=== PATIENT | female | born 1990 | race Caucasian/White ===

== ENCOUNTER 2017-06-29 11:41 | Inpatient (IN) | payer OTHER ==
[2017-06-29] VITALS (9 sets, daily range): BP systolic 118–126; BP diastolic 63–66; PULSE 100–102; RESP 17–18; TEMP 98.1–98.3
[~2017-06-29 11:41] MED LIST: IBUP800 PO; PRENTAB50 PO
--- NOTE | 2017-06-29 12:41 | MH ---
cc: Kathryn Bleu MD DATE OF ADMISSION: 06/29/2017 INDICATION FOR ADMISSION: A 36-week intrauterine with good dates and persistent oligohydramnios. Specific amniotic fluid index today 4.3. HISTORY OF PRESENT CONDITION: The patient is a very pleasant 26-year-old white female, 2, para 1-0-0-1. Last menstrual period was 10/20/2016 and EDC is 07/27/2017, currently, at 36 and 0/7 weeks by dates and ultrasound. She has had an unremarkable other than a mildly elevated Glucola and normal 3-hour glucose tolerance test. She has had no labor, gestational diabetes. She has been compliant with care and her total weight gain has been 26 pounds. We have had a concern about a possible low-lying placenta/praevia and on ultrasound this was ruled out, but it was found earlier this week that her KACIE at 35+ weeks was 7. She came back in today having rested, drank plenty of fluids and her KACIE is 4.3. Dopplers are normal. The infant is vertex and otherwise biophysical profile of a 8/8. The cervix is closed, but soft and anterior, and the is at a -2 station. Estimated weight is 7 pounds. The pelvis is proven to 8.5 pounds. PAST MEDICAL HISTORY: Her general health is excellent. She has no chronic or systemic illnesses. SOCIAL HISTORY: She does not smoke, drink or use illicit drugs. 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 FAMILY HISTORY: Noncontributory. LABS: Her blood type is O positive. Her hemoglobin was 10.9 at 28 weeks. Her Pap smears have been normal. She is immune to chickenpox and [place] measles. She has never been exposed to syphilis, hepatitis or HIV. Her thyroid studies are normal. Drug screen is normal and a quad screen showed no increased risk of defects. REVIEW OF SYSTEMS: Normal otherwise and bilateral carpal tunnel symptomatology. IMMUNIZATIONS: She has had the flu shot, but she has not gotten the repeat Tdap this at all. PHYSICAL EXAMINATION: GENERAL: Well-developed, well-nourished female. VITAL SIGNS: Blood pressure is 110/60. VITAL SIGNS: Her weight is 204. Urine showed trace protein and leukocytes. LUNGS: Clear. HEART: Regular. ABDOMEN: Fundus is at 38. She has no CVA tenderness. PELVIC EXAM: Perineum is estrogenized. Vault shows the cervix as described. EXTREMITIES: Show minimal edema. IMPRESSION: A 36-week intrauterine with persistent oligohydramnios for gestational age. PLAN: To proceed with Cervidil and Pitocin augmentation as indicated. Pain management as indicated. We have reviewed the risks of oligohydramnios persistent versus early delivery. She knows there is a risk that this child could have transient tachypnea or mild respiratory distress syndrome and could possibly end up in the intensive care unit. She is going home to pick pulling machine tender her things and then heading to labor and delivery, where she will undergo Cervidil cervical ripening under continuous monitoring. Kathryn Blue MD PPC/SB , 09:26 AM , 10:02 AM
[2017-06-29] MEDS ORDERED: NS 1000 ML IV PRN (13:30)
[2017-06-29] MEDS ORDERED: MINERAL OIL 10 ML VIAL TOPICAL PRN ×2 (13:30→16:00)
[2017-06-29] MEDS ORDERED: LACTATED RINGER'S 1000 ML BOLUS IV PRN (13:30)
[2017-06-29] MEDS ORDERED: OXYTOCIN 30 UNITS 500ML PREMIX IV ONE (13:30)
[2017-06-29] MEDS ORDERED: CITRIC ACID-SODIUM CITRATE LIQ 30 ML UDC PO SCH ×2 (13:30→16:00)
[2017-06-29] MEDS ORDERED: LIDOCAINE HCL 1% 50 ML VIAL INFIL PRN ×2 (13:30→16:00)
[2017-06-29] MEDS ORDERED: NS 500 ML BOLUS IV PRN (13:30)
[2017-06-29] MEDS ORDERED: LIDOCAINE HCL 1% 50 ML VIAL I-DERMAL PRN ×2 (13:30→16:00)
[2017-06-29] MEDS ORDERED: DINOPROSTONE 10 MG INSERT-LEAVE FOR 12 HOURS VAGINAL ONE (13:45)
[2017-06-29] MEDS: LACTATED RINGER'S 1000 ML IV SCH ×2 (14:00→22:00)
[2017-06-29 14:49] LABS: AUTOMATED NEUTROPHIL # 8.3 TH/MM3 (1.8-7.7); BASOPHIL % 0.3 % (0.0-2.0); EOSINOPHIL # 0.2 TH/MM3 (0-0.4); EOSINOPHIL % 1.5 % (0.0-4.0); HEMATOCRIT 27.8 % (35.0-46.0); HEMOGLOBIN 9.3 GM/DL (11.6-15.3); LYMPH % 12.5 % (9.0-44.0); LYMPHOCYTE # 1.3 TH/MM3 (1.0-4.8); MEAN CELL VOLUME 78.2 FL (80.0-100.0); MEAN CORPUSCULAR HEMOGLOBIN 26.1 PG (27.0-34.0); MEAN CORPUSCULAR HGB CONC 33.4 % (32.0-36.0); MEAN PLATELET VOLUME 7.4 FL (7.0-11.0); MONO % 8.7 % (0.0-8.0); MONOCYTE # 0.9 TH/MM3 (0-0.9); PLATELET COUNT 286 TH/MM3 (150-450); RED BLOOD COUNT 3.56 MIL/MM3 (4.00-5.30); RED CELL DISTRIBUTION WIDTH 14.7 % (11.6-17.2); WHITE BLOOD COUNT 10.8 TH/MM3 (4.0-11.0)
[2017-06-29 15:22] LABS: AMORPHOUS SEDIMENT, URINE RARE; BILIRUBIN, URINE NEG (NEG); BLOOD, URINE NEG (NEG); GLUCOSE,URINE 300 mg/dL (NEG); KETONE, URINE NEG (NEG); MUCUS URINE FEW /lpf (OCC); NITRITE,URINE NEG (NEG); PH, URINE 6.5 (5.0-8.5); SQUAMOUS EPITHELIAL CELL URINE 4 /hpf (0-5); URINE COLOR YELLOW (YELLW/STRAW); URINE LEUKOCYTE ESTERASE MOD (NEG)
[2017-06-29] MEDS ORDERED: LACTATED RINGER'S 1000 ML INJ 1,000 ML IV PRN (15:56)
[2017-06-29] MEDS: LACTATED RINGER'S 1000 ML INJ 1,000 ML IV SCH ×2 (15:56→23:56)
[2017-06-29] MEDS ORDERED: SODIUM CHLORIDE 0.9% FLUSH 10 ML FLUSH IV FLUSH PRN (16:00)
[2017-06-29] MEDS ORDERED: OXYTOCIN 30 UNITS-500ML PREMIX 500 ML IV ONE (16:00)
[2017-06-29] MEDS ORDERED: DINOPROSTONE 10 MG VAG INSERT VAGINAL ONE (16:00)
[2017-06-29] MEDS ORDERED: SODIUM CHLORID 0.9% 500 ML INJ 500 ML IV PRN (16:00)
[2017-06-29] MEDS ORDERED: SODIUM CHLOR 0.9% 1000 ML INJ 1,000 ML IV PRN (16:16)
[2017-06-29] MEDS ORDERED: SODIUM CHLORIDE 0.9% FLUSH 10 ML FLUSH IV FLUSH SCH (21:00)
[2017-06-29] MEDS ORDERED: ZOLPIDEM TARTRATE 10 MG TAB PO PRN (21:00)
[2017-06-30] VITALS (49 sets, daily range): BP systolic 104–143; BP diastolic 54–98; PULSE 98–118; RESP 16–20; TEMP 97.9–98.5
[2017-06-30] MEDS ORDERED: BETAMETHASONE SOD PHOS/ACETATE SUSP 30 MG/5 ML VIAL IM ONE (08:15)
[2017-06-30] MEDS ORDERED: OXYTOCIN 30 UNITS/NS 500ML PREMIX IV PRN (08:15)
[2017-06-30] MEDS ORDERED: MISOPROSTOL 100 MCG TAB PO ONE (12:00)
[2017-06-30] MEDS ORDERED: SODIUM CHLORIDE 0.9% FLUSH 10 ML FLUSH IV FLUSH PRN (12:00)
[2017-06-30] MEDS ORDERED: MORPHINE SULFATE PF 5 MG/10 ML VIAL ONE (12:44)
[2017-06-30] MEDS ORDERED: ACETAMINOPHEN 1000 MG/100 ML 0 ML IV ONE (12:44)
--- NOTE | 2017-06-30 16:30 | PD.LABORPN ---
Subjective Subjective comfortable with minimal contractions, no SUGGS, N, V Good movement with no leaking, bleeding Objective Vital Signs Vital Signs Date Time Temp Pulse Resp B/P (MAP) Pulse Ox O2 Delivery O2 Flow Rate FiO2 06/30/17 15:00 118 06/30/17 14:55 104 06/30/17 14:50 104 06/30/17 14:45 104 06/30/17 14:40 104 06/30/17 14:35 107 06/30/17 14:30 109 06/30/17 14:25 106 06/30/17 14:20 109 06/30/17 14:15 111 06/30/17 14:10 108 06/30/17 14:05 110 06/30/17 14:00 111 06/30/17 13:50 109 06/30/17 13:45 111 06/30/17 13:01 109 129/98 (108) 06/30/17 12:30 98 126/85 (99) 06/30/17 12:00 18 06/30/17 12:00 109 117/72 (87) 06/30/17 11:59 97.9 06/30/17 11:30 103 131/79 (96) 06/30/17 11:23 102 134/67 (89) 06/30/17 11:00 116 125/72 (89) 06/30/17 10:30 112 134/63 (86) 06/30/17 10:00 113 130/67 (88) 06/30/17 09:45 113 129/72 (91) Objective Pelvic Exam: anterior, thin,, ft, firm category 1 strip efw 7 pounds pelvis clinically adequate bedside sono shows no visible pocket of vluid that does not contain cord. Placenta grade 3 with calcifications and well demarkcated cotyledons. Weeks Gestation: 36 Gest Age Assessed Date: Jun 30, 2017 Gest Age Assessed Time: 16:26 Pt started active labor?: No Medical induction of labor?: Yes Medical induction start date: Jun 30, 2017 Medical induction start time: 08:00 Artificial rupture of membrane: No Assessment/Plan Assessment and Plan 36 week IUP with prgressive decrease ub KACIE over this week. For induction. Strip entirely reasusring no shcane with cervicil laslt night or with pitocin in the morning Will try cytotec orally and then resume pitocin again in night or am. No need to be so aggressive as to pecipitiate need for section, but do need continuos monitroing. anticipte use of oral cytotec and pitocin to evantually create labor and delivery. received [email or web address] Antonio MD Jun 30, 2017 16:30
[2017-06-30] MEDS ORDERED: MISOPROSTOL 25 MCG TAB PO ONE (17:00)
[2017-06-30] MEDS: SODIUM CHLORIDE 0.9% FLUSH 10 ML FLUSH IV FLUSH SCH (21:00)
[2017-06-30] MEDS ORDERED: MISOPROSTOL 100 MCG TAB PO SCH (22:00)
[2017-06-30] MEDS ORDERED: ONDANSETRON HCL 4 MG/2 ML VIAL ONE (23:06)
[2017-06-30] MEDS ORDERED: ONDANSETRON HCL 4 MG/2 ML VIAL IV PUSH SCH (23:15)
[2017-06-30] MEDS ORDERED: ONDANSETRON HCL 4 MG/2 ML VIAL IV PUSH PRN (23:15)
[2017-06-30] MEDS: LACTATED RINGER'S 1000 ML INJ 1,000 ML IV SCH (23:56)
[2017-07-01] VITALS (44 sets, daily range): BP systolic 74–144; BP diastolic 41–90; PULSE 86–160; RESP 16–18; TEMP 98–98.5; O2SAT 98
[2017-07-01] MEDS: LACTATED RINGER'S 1000 ML INJ 1,000 ML IV SCH (00:28)
[2017-07-01] MEDS: MISOPROSTOL 25 MCG TAB PO SCH ×3 (02:00→10:00)
[2017-07-01] MEDS: SODIUM CHLORIDE 0.9% FLUSH 10 ML FLUSH IV FLUSH SCH (09:00)
[2017-07-01] MEDS ORDERED: fentaNYL 2MCG-BUPIV 0.125% INJ 100 ML ONE (10:45)
[2017-07-01] MEDS ORDERED: ePHEDrine/NS 25 MG/5 ML SYRINGE ONE (10:45)
[2017-07-01] MEDS ORDERED: ePHEDrine/NS 25 MG/5 ML SYRINGE IV PUSH PRN (11:45)
[2017-07-01] MEDS ORDERED: DO NOT ADMINISTER ANTICOAGULANTS PRN (11:45)
[2017-07-01] MEDS ORDERED: NO SYSTEM NARCOTICS PRN (11:45)
[2017-07-01] MEDS ORDERED: fentaNYL 2MCG-BUPIV 0.125% 100 ML EPIDURAL SCH (11:45)
[2017-07-01] MEDS ORDERED: OXYTOCIN 30 UNITS/NS 500ML PREMIX IV PRN (13:15)
[2017-07-01] MEDS ORDERED: BUPIVACAINE/EPINEPHRINE 0.25% PF 10 ML VIAL ONE (14:29)
[2017-07-01] MEDS ORDERED: DIPHTH/TETANUS/ACEL PERTUSSIS (BOOSTER) 0.5 ML VIAL/PFS IM ONE (16:00)
[2017-07-01] MEDS ORDERED: MEASLES, MUMPS, RUBELLA VACCINE 0.5 ML VIAL SQ ONE (16:00)
--- NOTE | 2017-07-01 16:14 | PD.OB.DELI ---
Weeks gestation: 36 Gest age assessed date: Jun 30, 2017 Gest age assessed time: 16:26 Pt started active labor?: No Medical induction of labor?: Yes Medical induction start date: Jun 30, 2017 Medical induction start time: 08:00 Artificial rupture of membrane: Yes Artificial ROM date: Jul 01, 2017 Artifical ROM time: 08:30 Anesthesia: Epidural Vaginal Delivery: Normal Presentation: Occiput anterior Nuchal Cord: x1 Delayed cord clamping (45 sec): Yes : Female Delivery date: Jul 01, 2017 Delivery time: 16:13 One Minute : 9 Five Minute : 9 Weight: 7 Placenta: Spontaneous delivery Laceration: No lacerations Estimated blood loss: 200 Kathryn Blue MD Jul 01, 2017 16:14
[2017-07-01] MEDS ORDERED: ACETAMINOPHEN 325 MG TAB PO PRN (16:15)
[2017-07-01] MEDS ORDERED: ZOLPIDEM TARTRATE 5 MG TAB PO PRN (16:15)
[2017-07-01] MEDS ORDERED: OXYTOCIN 30 UNITS-500ML PREMIX 500 ML IV SCH (16:15)
[2017-07-01] MEDS ORDERED: WITCH HAZEL 50%/GLYCERIN 12.5% 40 PAD JAR TOPICAL PRN (16:15)
[2017-07-01] MEDS ORDERED: DOCUSATE SODIUM 50 MG/SENNA 8.6 MG TAB PO PRN (16:15)
[2017-07-01] MEDS ORDERED: BENZOCAINE 20% TOPICAL SPRAY 60 ML CAN TOPICAL PRN (16:15)
[2017-07-01] MEDS ORDERED: ALUMINUM/MAGNESIUM/SIMETH 30 ML CUP PO PRN (16:15)
[2017-07-01] MEDS ORDERED: SODIUM CHLORIDE 0.9% FLUSH 10 ML FLUSH IV FLUSH PRN (16:15)
[2017-07-01] MEDS ORDERED: ONDANSETRON ODT 4 MG TAB PO PRN (16:15)
--- NOTE | 2017-07-01 16:17 | HHI.DCPOC ---
Discharge Care Plan Report Symptoms to Your Doctor -Temperature above 100.5 degrees -Redness, of incision or excessive or foul smelling drainage -Unusual pain or calf pain -Increased vaginal bleeding -Painful or difficulty urinating -Feelings of extreme sadness or anxiety after 2 weeks Goals to Promote Your Health * To prevent worsening of your condition and complications * To maintain your health at the optimal level Directions to Meet Your Goals Take your medications as prescribed Follow your dietary instruction Follow activity as directed Ensure plenty of rest for recovery Drink fluids for hydration Keep your appointments as scheduled Take your immunizations and boosters as scheduled If your symptoms worsen call your PCP, if no PCP go to Urgent Care Center or Emergency Room Smoking is Dangerous to Your Health. Avoid second hand smoke Call the 24-hour crisis hotline for domestic abuse at Kathryn Blue MD Jul 01, 2017 16:17
[2017-07-02] MEDS: IBUPROFEN 800 MG TAB PO PRN ×2 (00:51→14:22)
[2017-07-02 07:35] VITALS: BP 105/72; PULSE 72; RESP 16; TEMP 98; O2SAT 98
--- NOTE | 2017-07-02 08:00 | HHI.OB ---
Subjective Post Day: 1 Remarks doing well, baby in NICU for TTN, low BS Objective Vitals/I&O Vital Signs Date Time Temp Pulse Resp B/P (MAP) Pulse Ox O2 Delivery O2 Flow Rate FiO2 07/02/17 07:35 98.0 72 16 105/72 (83) 98 07/01/17 20:00 98.1 99 17 98 07/01/17 20:00 144/76 (98) 07/01/17 17:40 16 07/01/17 17:25 16 07/01/17 17:18 86 120/69 (86) 07/01/17 17:10 16 07/01/17 16:55 98.5 16 07/01/17 16:40 16 07/01/17 16:30 98 120/63 (82) 07/01/17 16:00 160 126/89 (101) 07/01/17 15:31 108 110/49 (69) 07/01/17 15:00 103 123/60 (81) 07/01/17 15:00 18 07/01/17 14:59 98.2 07/01/17 14:31 92 122/66 (84) 07/01/17 14:00 97 127/78 (94) 07/01/17 13:30 97 126/76 (93) 07/01/17 13:00 90 123/69 (87) 07/01/17 12:57 18 07/01/17 12:50 95 114/69 (84) 07/01/17 12:46 113 74/41 (52) 07/01/17 12:30 94 121/70 (87) 07/01/17 12:16 98 113/61 (78) 07/01/17 12:01 101 132/66 (88) 07/01/17 11:49 98.0 18 07/01/17 11:46 96 124/61 (82) 07/01/17 11:45 102 07/01/17 11:40 122 07/01/17 11:35 104 07/01/17 11:30 102 07/01/17 11:30 117 132/60 (84) 07/01/17 11:25 107 113/86 (95) 07/01/17 11:25 109 07/01/17 11:20 18 07/01/17 11:20 110 122/68 (86) 07/01/17 11:20 105 07/01/17 11:15 105 07/01/17 11:15 106 135/63 (87) 07/01/17 11:10 109 127/66 (86) 07/01/17 11:10 104 07/01/17 11:06 105 128/68 (88) 07/01/17 11:05 105 07/01/17 11:04 106 118/90 (99) 07/01/17 11:00 131 07/01/17 11:00 16 07/01/17 10:55 110 07/01/17 09:30 16 07/01/17 08:00 98.0 16 Objective Remarks GENERAL: Well-nourished, well-developed patient. CARDIOVASCULAR: Regular rate and rhythm without murmurs, gallops, or rubs. RESPIRATORY: Breath sounds equal bilaterally. No accessory muscle use. ABDOMEN/GI: Abdomen soft, non-tender. Fundus: Firm, non-tender at umbilicus. GENITOURINARY: Light to moderate bleeding. EXTREMITIES: No cyanosis or edema, non-tender, without signs of DVT. Medications and IVs Current Medications Medications (Trade) Dose Ordered Sig/Cora Route Start Time Stop Time Status Last Admin Lactated Ringer's 1,000 ml @ 3,000 mls/hr BOLUS PRN IV 06/29/17 13:30 Sodium Chloride 500 ml @ 1,000 mls/hr BOLUS PRN IV 06/29/17 13:30 Lactated Ringer's 1,000 ml @ 125 mls/hr Q8H IV 06/29/17 15:56 06/30/17 23:56 Lactated Ringer's 1,000 ml @ 3,000 mls/hr Q20M PRN IV 06/29/17 15:56 Sodium Chloride 500 ml @ 1,000 mls/hr ONCE PRN IV 06/29/17 16:00 07/02/17 15:59 Sodium Chloride 1,000 ml @ 100 mls/hr Q10H PRN IV 06/29/17 16:16 (Xylocaine 1% Inj (50 ml)) 0.1 ml UNSCH X1 PRN I-DERMAL 06/29/17 16:00 07/02/17 15:59 (Bicitra Liq) 30 ml DEPUTY DIRECTOR PO 06/29/17 16:00 07/03/17 15:59 (fentaNYL INJ) 50 mcg Q1H PRN IV PUSH 06/29/17 16:00 (fentaNYL INJ) 100 mcg Q1H PRN IV PUSH 06/29/17 16:00 (Muri-Lube Oil) 10 ml UNSCH PRN TOPICAL 06/29/17 16:00 (Cytotec) 50 mcg Q4H PO 07/01/17 02:00 07/01/17 05:33 Miscellaneous Information No systemic narcotics to be given except... UNSCH PRN .XX 07/01/17 11:45 07/02/17 11:44 Miscellaneous Information DO NOT ADMINISTER ANY ANTICOAGUL... UNSCH PRN .XX 07/01/17 11:45 07/02/17 11:44 Fentanyl/ Bupivacaine HCl 100 ml @ 0 mls/hr TITRATE EPIDURAL 07/01/17 11:45 07/01/17 12:57 (ePHEDrine/NS 25 MG/5 ML SYR) 10 mg UNSCH PRN IV PUSH 07/01/17 11:45 07/02/17 11:44 (NS Flush) 2 ml BID IV FLUSH 07/01/17 21:00 (NS Flush) 2 ml UNSCH PRN IV FLUSH 07/01/17 16:15 (Tylenol) 650 mg Q4H PRN PO 07/01/17 16:15 (Motrin) 800 mg Q8H PRN PO 07/01/17 16:15 07/02/17 00:51 (Americaine 20% Top Spr) 1 spray Q4H PRN TOPICAL 07/01/17 16:15 (Tucks Pads) 1 applic QID PRN TOPICAL 07/01/17 16:15 (Tootie-Colace) 2 tab Q12H PRN PO 07/01/17 16:15 (Ambien) 5 mg HS PRN PO 07/01/17 16:15 (Mag-Al Plus Susp Liq) 15 ml Q8H PRN PO 07/01/17 16:15 (Zofran Odt) 4 mg Q6H PRN PO 07/01/17 16:15 Assessment/Plan Problem List: (1) Vaginal delivery ICD Codes: O80 - Encounter for full-term uncomplicated delivery (2) Oligohydramnios antepartum ICD Codes: O41.00X0 - Oligohydramnios, unspecified trimester, not applicable or unspecified Assessment and Plan PPD #1 , IOL for oligo doing well Discharge Planning routine Attending Attestation pt seen by Josie Ruffin MD Jul 02, 2017 08:00
[2017-07-02] MEDS: SODIUM CHLORIDE 0.9% FLUSH 10 ML FLUSH IV FLUSH SCH ×2 (09:00→20:04)
[2017-07-02] MEDS ORDERED: guaiFENesin/DEXTROMETHORPHAN 200 MG/20 MG/10 ML CUP PO PRN (16:30)
[2017-07-02] MEDS: LACTATED RINGER'S 1000 ML INJ 1,000 ML IV SCH (23:56)
[2017-07-03] MEDS: IBUPROFEN 800 MG TAB PO PRN (01:39)
[2017-07-03 08:00] VITALS: BP 139/86; PULSE 69; RESP 20; TEMP 97.9; O2SAT 98
--- NOTE | 2017-07-03 08:21 | HHI.OB ---
Subjective Post Day: 2 Objective Vitals/I&O doing well baby in NICU from TTN Objective Remarks GENERAL: Well-nourished, well-developed patient. CARDIOVASCULAR: Regular rate and rhythm without murmurs, gallops, or rubs. RESPIRATORY: Breath sounds equal bilaterally. No accessory muscle use. ABDOMEN/GI: Abdomen soft, non-tender. Fundus: Firm, non-tender at umbilicus. GENITOURINARY: Light to moderate bleeding. EXTREMITIES: No cyanosis or edema, non-tender, without signs of DVT. Medications and IVs Current Medications Medications (Trade) Dose Ordered Sig/Cora Route Start Time Stop Time Status Last Admin Lactated Ringer's 1,000 ml @ 3,000 mls/hr BOLUS PRN IV 06/29/17 13:30 Sodium Chloride 500 ml @ 1,000 mls/hr BOLUS PRN IV 06/29/17 13:30 Lactated Ringer's 1,000 ml @ 125 mls/hr Q8H IV 06/29/17 15:56 06/30/17 23:56 Lactated Ringer's 1,000 ml @ 3,000 mls/hr Q20M PRN IV 06/29/17 15:56 Sodium Chloride 1,000 ml @ 100 mls/hr Q10H PRN IV 06/29/17 16:16 (Bicitra Liq) 30 ml FIELD SERVICE ANALYST PO 06/29/17 16:00 07/03/17 15:59 (fentaNYL INJ) 50 mcg Q1H PRN IV PUSH 06/29/17 16:00 (fentaNYL INJ) 100 mcg Q1H PRN IV PUSH 06/29/17 16:00 (Muri-Lube Oil) 10 ml UNSCH PRN TOPICAL 06/29/17 16:00 (Cytotec) 50 mcg Q4H PO 07/01/17 02:00 07/01/17 05:33 Fentanyl/ Bupivacaine HCl 100 ml @ 0 mls/hr TITRATE EPIDURAL 07/01/17 11:45 07/01/17 12:57 (NS Flush) 2 ml BID IV FLUSH 07/01/17 21:00 (NS Flush) 2 ml UNSCH PRN IV FLUSH 07/01/17 16:15 (Tylenol) 650 mg Q4H PRN PO 07/01/17 16:15 (Motrin) 800 mg Q8H PRN PO 07/01/17 16:15 07/03/17 01:39 (Americaine 20% Top Spr) 1 spray Q4H PRN TOPICAL 07/01/17 16:15 (Tucks Pads) 1 applic QID PRN TOPICAL 07/01/17 16:15 (Tootie-Colace) 2 tab Q12H PRN PO 07/01/17 16:15 07/03/17 01:39 (Ambien) 5 mg HS PRN PO 07/01/17 16:15 (Mag-Al Plus Susp Liq) 15 ml Q8H PRN PO 07/01/17 16:15 (Zofran Odt) 4 mg Q6H PRN PO 07/01/17 16:15 (Robitussin Dm 200-20 Mg/10 ml Liq) 5 ml QID PRN PO 07/02/17 16:30 Assessment/Plan Problem List: (1) Vaginal delivery ICD Codes: O80 - Encounter for full-term uncomplicated delivery (2) Oligohydramnios antepartum ICD Codes: O41.00X0 - Oligohydramnios, unspecified trimester, not applicable or unspecified Assessment and Plan PPD #1 , IOL for oligo doing well PPD #2 baby upstairs but should go home soon Discharge Planning routine Kathryn Blue MD Jul 03, 2017 08:21
[2017-07-03 11:51] VITALS: BP 129/78; PULSE 73
== END 2017-07-03 11:56 | disposition home or self-care (01) | DRG 775 ==
LOC: H2EB 11:41 → H1EA 07-01 19:36
PROVIDERS: ADMIT Obstetrics & Gynecology; ATTEND Obstetrics & Gynecology
PROC: 3E0P7VZ Introduction of Hormone into Female Reproductive, Via Natural or Artificial Opening (ICD-10-PCS; 2017-06-30)
PROC: 3E033VJ Introduction of Other Hormone into Peripheral Vein, Percutaneous Approach (ICD-10-PCS; 2017-06-30)
PROC: 10E0XZZ Delivery of Products of Conception, External Approach (ICD-10-PCS; principal; 2017-07-01)
PROC: 10907ZC Drainage of Amniotic Fluid, Therapeutic from Products of Conception, Via Natural or Artificial Opening (ICD-10-PCS; 2017-07-01)
DX: O41.03X0 Oligohydramnios, third trimester, not applicable or unspecified (principal); O69.81X0 Labor and delivery complicated by cord around neck, without compression, not applicable or unspecified; Z37.0 Single live birth; Z3A.36 36 weeks gestation of pregnancy
CPT/HCPCS: 59025; 76815; 80307; 81001; 85025; 86900; 86901; 87081; 87150; G0481; J0131; J0702; J2274; J2405; J2590; J7120